=== PATIENT | male | born 2000 | race Caucasian/White ===

== ENCOUNTER 2023-06-02 07:50 | Outpatient (OUT) | payer OTHER, SELFPAY ==
[2023-06-02 09:04] LABS: Hematocrit 40.8 % (42.0-54.0)
[2023-06-03 04:07] LABS: RPR Non Reactive (Non Reactive)
[2023-06-03 06:08] LABS: Estradiol <5.0 pg/mL (7.6-42.6); HBsAg Screen Negative (Negative); HCV Antibody Non Reactive (Non Reactive); HIV Ab/p24 Ag Screen Non Reactive (Non Reactive); Hep B Core Ab, Tot Negative (Negative); Testosterone 142 ng/dL (264-916)
== END 2023-06-02 07:51 | disposition home or self-care (01) ==
LOC: LAB 07:51
PROVIDERS: PCP Family Medicine
DX: E29.1 Testicular hypofunction (principal); Z11.9 Encounter for screening for infectious and parasitic diseases, unspecified; Z11.59 Encounter for screening for other viral diseases
CPT/HCPCS: 36415; 82670; 84403; 85014; 86592; 86706; 86803; 87389

== ENCOUNTER 2024-03-16 07:50 | Emergency (ER) | payer OTHER, SELFPAY ==
[2024-03-16 07:57] VITALS: BP 124/75; PULSE 82; TEMP 36.6; O2SAT 97; BMI 29.7
--- NOTE | 2024-03-16 08:14 | ED_ITS ---
HPI HPI - Back Pain/Injury General Chief Complaint: Back Pain/Injury Stated Complaint: FALL/LOWER EXTREMITY PAIN Time Seen by Provider: 03/16/24 07:56 Source: patient Mode of arrival: walk-in Limitations: no limitations History of Present Illness HPI Narrative: about a week ago the patient slipped on a wet floor in the middle of the night and fell, landing onto a tote in the bathroom. He struck his low back against the tote. Since then he has been experiencing pain to the low back that radiates into the left buttock and - when sitting for longer periods of time - down the left leg. No bowel or bladder problems. No fever or chills. No urinary symptoms or fever. No relief with tylenol or Aleve at home. Related Data Previous Rx's ?Medication ?Instructions ?Recorded methocarbamol 750 mg tablet 750 mg PO Q6H PRN pain #30 tabs 03/16/24 nabumetone 750 mg tablet 750 mg PO BID PRN pain #14 tabs 03/16/24 Allergies Allergy/AdvReac Type Severity Reaction Status Date / Time No Known Drug Allergies Allergy Verified 03/16/24 07:56 Opioid HPI Opioid Management Most Recent Opioid Data: Last Pain Scale 6 03/16/24 08:01 Exam Narrative Exam Narrative: General: Alert, no acute distress, patient resting comfortably Skin: warm, intact, no pallor noted Head: Normocephalic, atraumatic Eye: Normal conjunctiva Respiratory: No acute distress Abdomen: Normal bowel sounds, soft, nontender, no masses detected. No rebound, guarding, or rigidity noted. Back: inspection of the back shows no obvious deformity, no swelling, no ecchymosis, contusion, abrasion, swelling, erythema, fluctuance or induration. Tenderness noted to midline lower lumbar vertebral spine and the left paralumbar soft tissue into the superior left buttock. Straight leg raise on left is negative. Straight leg raise on right is negative. No CVA tenderness noted bilaterally. Musculoskeletal: No deformity noted to bilateral lower extremities. no cyanosis or mottling noted. normal pulses at DP and PT 2+ bilaterally and symmetrically. Normal 5/5 strength at ankles with dorsiflexion and plantar flexion. Patient is able to ambulate. Normal sensation noted to both lower extremities. Neurological: AAOx4, normal sensory and motor observed. L5-S1 reflexes intact symmetrically. DTR 2+ at patellar bilaterally. Psychiatric: Cooperative and interactive. Constitutional Vital Signs, click to edit/add: Last Vital Signs Temp 97.8 F 03/16/24 07:57 Pulse 87 03/16/24 08:53 Resp 16 03/16/24 08:53 BP 122/74 03/16/24 08:53 Pulse Ox 100 03/16/24 08:53 O2 Del Method Room Air 03/16/24 08:53 Course Vital Signs Vital signs: Vital Signs Temperature 97.8 F 03/16/24 07:57 Pulse Rate 82 03/16/24 07:57 Respiratory Rate 16 03/16/24 07:57 Blood Pressure 124/75 03/16/24 07:57 Pulse Oximetry 97 03/16/24 07:57 Oxygen Delivery Method Room Air 03/16/24 07:57 Temperature 97.8 F 03/16/24 07:57 Pulse Rate 87 03/16/24 08:53 Respiratory Rate 16 03/16/24 08:53 Blood Pressure 122/74 03/16/24 08:53 Pulse Oximetry 100 03/16/24 08:53 Oxygen Delivery Method Room Air 03/16/24 08:53 MDM - Back Pain/Injury MDM Narrative Medical decision making narrative: xrays of the lumbar spine obtained. No fracture or subluxation identified. Patient informed of xray interpretation and was discharged home with prescriptions for relafen and robaxin. Recommend PCP follow up. Imaging Data xr lumbar spine: My impression: NAD Radiologist's impression: ITS Impressions Lumbar Spine X-Ray 03/16/24 08:14 IMPRESSION: No acute radiographic abnormality Electronically authenticated by: JERMAN BLUE Date: 03/16/2024 08:55 Discharge Plan Discharge Stand Alone Forms: Portal Instructions Chief Complaint: Back Pain/Injury Clinical Impression: Contusion of lumbar spinal region, Low back pain Patient Disposition: Home, Self-Care Time of Disposition Decision: 08:43 Prescriptions / Home Meds: New nabumetone 750 mg tablet 750 mg PO BID PRN (Reason: pain) Qty: 14 0RF methocarbamol 750 mg tablet 750 mg PO Q6H PRN (Reason: pain) Qty: 30 0RF Print Language: Latvian Instructions: Acute Low Back Pain (ED), Contusion in Adults (ED) Referrals: Martha Patrick MD [Primary Care Provider] - 1 week Discharge Date/Time: 03/16/24 08:54
--- NOTE | 2024-03-16 08:14 | XR_ITS ---
The [address] [address] Patient Name: PRECIOUS HAJI MRN: [id number] date: 2000 Sex: M Assigned Patient Location: ER Current Patient Location: Accession/Order Number: [id number] Exam Date: 03/16/2024 08:20 Report Date: 03/16/2024 08:55 At the request of: PRECIOUS BROWNE Procedure: XR lumbar spine 2-3V EXAMINATION: XR lumbar spine 2-3V HISTORY: LOW BACK INJURY AND PAIN COMPARISON: 06/14/2021 FINDINGS: BONES: 10% anterior wedge compression fracture of the T12 and L1 vertebral bodies, stable. No new fracture or spondylolisthesis. No significant degenerative changes DISC SPACES: Normal. No significant disc height narrowing, subluxation, or endplate abnormality. PARASPINOUS: Negative. No paraspinous abnormality is seen. OTHER: Negative. XR/XR lumbar spine 2-3V IMPRESSION: No acute radiographic abnormality Electronically authenticated by: JERMAN BLUE Date: 03/16/2024 08:55
[2024-03-16 08:53] VITALS: BP 122/74; PULSE 87; O2SAT 100
== END 2024-03-16 08:54 | disposition home or self-care (01) ==
PROVIDERS: Emergency Provider Emergency Medicine; PCP Family Medicine
DX: S30.0XXA Contusion of lower back and pelvis, initial encounter (principal); M54.50 Low back pain, unspecified; W01.0XXA Fall on same level from slipping, tripping and stumbling without subsequent striking against object, initial encounter
CPT/HCPCS: 72100; 99283

== ENCOUNTER 2025-07-21 07:49 | Outpatient (OUT) | payer OTHER, SELFPAY ==
--- NOTE | 2025-07-21 07:56 | CA_ITS ---
Patient Name: PRECIOUS HAJI MR#: [id number] : 2000 Exam Date: 07/21/2025 Ordering Doctor: DR ELGIN DURAN M.D. ECHOCARDIOGRAM REPORT PROCEDURE: CA ECHO DOPPLER COMPLETE INDICATIONS: Left sided chest pain COMPARISON: None. DESCRIPTION: COMPLETE ECHOCARDIOGRAM Real-time transthoracic echocardiography with 2D, M-mode, spectral and color flow Doppler performed. QUALITY: Technical quality was good. LEFT VENTRICLE: Normal chamber size. Normal left ventricular wall thickness. Global left ventricular systolic function is at lower limit of normal without wall motion abnormalities. Estimated left ventricular ejection fraction is 50%. LV EF: DIASTOLIC: Normal diastolic function. ATRIAL SEPTUM: Grossly appears intact LEFT ATRIUM: Normal chamber size. RIGHT ATRIUM: Mild dilatation. RIGHT VENTRICLE: Normal chamber size. Normal right ventricular systolic function. TRICUSPID VALVE: Normal mobility and thickness. No stenosis with mild regurgitation. pulmonary arterial pressure is at upper limit of normal.RVSP 35mmHg. MITRAL VALVE: Normal mobility and thickness. No evidence of mitral valve stenosis. There is no mitral annular calcification. Trivial mitral regurgitation. AORTIC VALVE: Normal trileaflet appearance. No visible sclerosis. Normal leaflet mobility. No evidence of aortic valve stenosis. No aortic regurgitation. AORTIC ROOT: Normal diameter and appearance. PULMONIC VALVE: Normal thickness and mobility. No stenosis. Trivial regurgitation. PERICARDIUM: No evidence of pericardial effusion. IVC: Collapes with inspirations. dilated measuring 2.7cm PLEURA: CONCLUSION: Normal left ventricular size and wall thickness, left ventricular systolic function is at lower limit of normal without wall motion abnormalities, ejection fraction 50% Normal left ventricular diastolic function Normal right ventricular size and systolic function Pulmonary arterial pressure is at upper limit of normal, RVSP 35 mmHg No significant valvular abnormalities Dilated IVC with normal respiratory collapse Mildly dilated right atrium Adult Echocardiography Procedure Report Left Ventricle LVEDD (3.7 - 5.6 cm): 5.12 cm LVESD (2.2 - 4.0 cm): 3.64 cm LVIVS thickness (0.6 - 1.2 cm): 0.98 cm LVPW thickness (0.5 - 1.0 cm): 0.92 cm e': 0.15 m/s E - e': 5.48 LVOT Max Gradient: 2.01 mm[Hg] LVOT Area (cm2): 0.71 m/s Peak Velocity (LVOT): 0.71 m/s Mean Velocity (LVOT): 0.48 m/s LVOT Diameter 2.44 cm Left Ventricular Ejection Fraction: 56.22 % Left Atrium LA Volume Index (2D A2C): 28.06 ml/m2 Left Atrium Systolic Dimension: 3.55 cm Mitral Valve MV E to A Ratio: 1.84 Mitral Valve A-Wave Peak Velocity: 0.46 m/s Mitral Valve E-Wave Peak Velocity: 0.84 m/s Right Ventricle RV Internal Diastolic Dimension: 3.35 cm Aorta AO Root Diam: 3.75 cm Ascending Ao Diam: 2.85 cm Aortic Valve AoV Area (Peak Farncisco): 3.36 cm2, 3.36 cm2 AoV Area (VTI): 3.23 cm2, 3.23 cm2 Peak Velocity(Antegrade Flow): 0.98 m/s Peak Gradient(Antegrade Flow): 3.86 mm[Hg] Mean Velocity(Antegrade Flow): 0.69 m/s Mean Gradient(Antegrade Flow): 2.16 mm[Hg] Velocity Time Integral: 21.67 cm Tricuspid Valve Peak Velocity (Regurgitant Flow): 2.62 m/s, 2.12 m/s, 2.16 m/s Pulmonic Valve Mean Gradient: 1.14 mm[Hg], 1.08 mm[Hg] Mean Velocity: 0.50 m/s, 0.48 m/s Peak Velocity: 0.70 m/s Peak Gradient: 1.85 mm[Hg], 2.05 mm[Hg] Right Atrium Right Atrium Systolic Pressure: 64.21 ml, 64.21 ml Dictated by: Mitul Marrero MD on 07/22/2025 at 17:37 Approved by: Mitul Marrero MD on 07/22/2025 at 17:46
== END 2025-07-21 07:50 | disposition home or self-care (01) ==
LOC: CARD 07:49
PROVIDERS: PCP Family Medicine; Visit Provider Family Medicine
DX: R07.9 Chest pain, unspecified (principal)
CPT/HCPCS: 93306

== ENCOUNTER 2025-10-10 08:20 | Emergency (ER) | payer OTHER, SELFPAY ==
[2025-10-10 08:31] VITALS: BP 135/82; PULSE 74; TEMP 36.7; O2SAT 99; BMI 28.6
[2025-10-10] MEDS: FLUORESCEIN SODIUM 1 MG STRIP OP (09:25)
[2025-10-10] MEDS: TETRACAINE HCL 0.5% OP SOL 80 DROP/4 ML BOTTLE OP (09:25)
--- NOTE | 2025-10-10 09:34 | ED.EYEPROB1 ---
HPI - Eye Problem General Chief complaint: Eye Problems Stated complaint: foreign body - eye Time Seen by Provider: 10/10/25 08:45 Source: patient Mode of arrival: walk-in Limitations: no limitations History of Present Illness HPI Narrative: The patient is coming to the ER after he was working with saw machine yesterday and apparently had some sawdust entered his left eye as he started having irritation of the left eye while he is working, the patient mentioned that he thinks he have some sawdust in his eye and he did flush it multiple times yesterday he thinks that he got most of it out Patient does not wear any contact lenses he wore glasses for distance vision He denies any other concerns Related Data Previous Rx's ?Medication ?Instructions ?Recorded methocarbamol 750 mg tablet 750 mg PO Q6H PRN pain #30 tabs 03/16/24 nabumetone 750 mg tablet 750 mg PO BID PRN pain #14 tabs 03/16/24 erythromycin 5 mg/gram (0.5 %) eye 0.5 inch ophthalmic (eye) Q4H 5 10/10/25 ointment days #3.5 grams Allergies Allergy/AdvReac Type Severity Reaction Status Date / Time No Known Drug Allergies Allergy Verified 10/10/25 08:31 Review of Systems ROS Status of ROS 10 or more systems reviewed and unremarkable except as noted in history and below PFSH PFSH Social History Little interest or pleasure in doing things: not at all Feeling down, depressed, or hopeless: not at all Exam Narrative Exam Narrative: Nurses notes and vital signs reviewed and patient is not hypoxic. General: Well-appearing and in no apparent distress. Eye examination: Right eye examination was benign left eye examination showed conjunctival erythema there is no obvious foreign body seen, no corneal abrasion and the patient have no hyphema or hypopyon. The fluorescein material was almost 1 mm on the anterior of the left upper lid mostly left upper corner Neurological: A&O x4. No cranial nerve dysfunction observed. No truncal ataxia. Moves all extremities. Sensation intact. Psychiatric: Cooperative and interactive. Normal mood and affect. Constitutional Vital Signs, click to edit/add: Last Vital Signs Temp 98.1 F 10/10/25 08:31 Pulse 74 10/10/25 08:31 Resp 18 10/10/25 08:31 BP 135/82 10/10/25 08:31 Pulse Ox 99 10/10/25 08:31 O2 Del Method Room Air 10/10/25 08:31 Course Vital Signs Vital signs: Vital Signs Temperature 98.1 F 10/10/25 08:31 Pulse Rate 74 10/10/25 08:31 Respiratory Rate 18 10/10/25 08:31 Blood Pressure 135/82 10/10/25 08:31 Pulse Oximetry 99 10/10/25 08:31 Oxygen Delivery Method Room Air 10/10/25 08:31 Temperature 98.1 F 10/10/25 08:31 Pulse Rate 74 10/10/25 08:31 Respiratory Rate 18 10/10/25 08:31 Blood Pressure 135/82 10/10/25 08:31 Pulse Oximetry 99 10/10/25 08:31 Oxygen Delivery Method Room Air 10/10/25 08:31 MDM - Eye Problem MDM Narrative Medical decision making narrative: The patient initially had bedside evaluation showing no foreign body after that he had tetracaine applied And then fluorescein dye and there is a possibility of a small 1 mm abrasion to the anterior of the left upper eyelid. But I did flush the eye adequately from the dye and to make sure there is no foreign body as well. Patient was started on erythromycin for conjunctival abrasion And then the patient was referred to ophthalmology as outpatient to be evaluated within next 48 hours Patient referred to Dr[address] Rico in ophthalmology service The patient also was instructed about wearing goggles when working with the electric saw Patient to come back to the ER in case of any blurry vision or any other concerns Discharge Plan Discharge Chief Complaint: Eye Problems Clinical Impression: Abrasion of conjunctiva Patient Disposition: Home, Self-Care Time of Disposition Decision: 09:35 Condition: Good Prescriptions / Home Meds: New erythromycin 5 mg/gram (0.5 %) ointment 0.5 inch ophthalmic (eye) Q4H 5 Days Qty: 3.5 0RF Rx Instructions: left eye No Action nabumetone 750 mg tablet 750 mg PO BID PRN (Reason: pain) Qty: 14 0RF methocarbamol 750 mg tablet 750 mg PO Q6H PRN (Reason: pain) Qty: 30 0RF Print Language: Honduran Instructions: Corneal Abrasion (DC), Eye Foreign Body (ED) Referrals: Suhail Rico MD [Physician, Opthalmology] - As soon as possible Referral Note: Please call for an appointment within the next 2 days Martha Patrick MD [Primary Care Provider, Family Practice] - 1 week Discharge Date/Time: 10/10/25 09:47
[2025-10-10] MEDS: ERYTHROMYCIN OP OINT 0.5% 1 GM TUBE OP (09:45)
== END 2025-10-10 09:47 | disposition home or self-care (01) ==
PROVIDERS: Emergency Provider Emergency Medicine; PCP Family Medicine
DX: S05.02XA Injury of conjunctiva and corneal abrasion without foreign body, left eye, initial encounter (principal); W44.8XXA Other foreign body entering into or through a natural orifice, initial encounter
CPT/HCPCS: 99284

== ENCOUNTER 2025-11-22 07:27 | Emergency (ER) | payer OTHER, SELFPAY ==
--- OUTSIDE RECORDS SUMMARY | 2025-02-25 04:00 | XMS_ITS ---
Author Organization [facility] es Address [address] [place] [address] Care Team Providers Care Director Technical Name Role Phone Raimundo Sullivan Primary Care Provider Josi Maldonado Unavailable [phone] REASON FOR VISIT [facility] Encounters Encounter Location Date Provider Diagnosis [facility] [address] [place] [address] 02/25/2025 Raimundo Sullivan Plan Of Treatment Next Appt Details Provider Name:Raimundo Sullivan , 12/02/2025 09:00:00 AM, [address] [place], [address], Progress Notes * PRECIOUS HAJIDOB:2000 (25 yo M)Acc No.[id number]:02/25/2025 F/U - Patient Patient: PRECIOUS TRUONG :?Raimundo Sullivan LPC DOB:2000???Age:24 Y ???Sex:MaleDate:02/25/2025Phone:[phone]:[address] [place], [place] [id number] Subjective: * Chief Complaints: * B h fu Care Plan Details* * Electronic signature of Raimundo Sullivan LPC on 11/22/2025 at 08:00 AM ESTSign off status: Pending * Provider: Gillian Sullivan LPC Date: 0 02/25/2025 Generated for Printing/Faxing/eTransmitting on:?11/22/2025 08:00 AM EST
--- OUTSIDE RECORDS SUMMARY | 2025-09-09 10:30 | XMS_ITS ---
Author Organization [facility] es Address [address] [place] [address] Care Team Providers Care Outreach Director Name Role Phone Raimundo Sullivan Primary Care Provider [phone] Josi Malodnado Unavailable [phone] REASON FOR VISIT [facility] Encounters Encounter Location Date Provider Diagnosis [facility] [address] [place] [address] 09/09/2025 Raimundo Sullivan Plan Of Treatment Next Appt Details Provider Name:Raimundo Sullivan , 12/02/2025 09:00:00 AM, [address] [place], [address], Progress Notes * PRECIOUS HAJIDOB:2000 (25 yo M)Acc No.[id number]:09/09/2025 F/U - Patient Patient: PRECIOUS TRUONG :?Raimundo Sullivan LPC DOB:2000???Age:25 Y ???Sex:MaleDate:09/09/2025Phone:[phone]:[address] [place], [place] [id number] Subjective: * Chief Complaints: * B h fu Billing Information: * Procedure Codes: Care Plan Details* * Electronic signature of Raimundo Sullivan LPC on 11/22/2025 at 08:00 AM ESTSign off status: Pending * Provider: Gillian Sullivan LPC Date: 1 Generated for Printing/Faxing/eTransmitting on:?11/22/2025 08:00 AM EST
--- OUTSIDE RECORDS SUMMARY | 2025-11-11 11:00 | XMS_ITS ---
Author Organization [facility] es Address [address] [place] [address] Care Team Providers Care Developmental Electronics Assembler Name Role Phone Raimundo Sullivan Primary Care Provider [phone] Josi Maldonado Unavailable [phone] REASON FOR VISIT fu Encounters Encounter Location Date Provider Diagnosis [facility] [address] [place] [address] 11/11/2025 Raimundo Sullivan Mood disorder F39 Assessments Encounter Date Diagnosis (ICD Code) Assessment Notes Treatment Notes Treatment Clinical Notes Section Notes 11/11/2025 Mood disorder (ICD-10 - F39) Plan Of Treatment Next Appt Details Provider Name:Raimundo Sullivan , 12/02/2025 09:00:00 AM, [address] [place], [address], Progress Notes * PRECIOUS HAJIDOB:2000 (25 yo M)Acc No.[id number]:11/11/2025 F/U - Patient Patient: PRECIOUS TRUONG :?Raimundo Sullivan LPC DOB:2000???Age:25 Y ???Sex:MaleDate:11/11/2025Phone:[phone]:[address] [place] [id number] Subjective: * Chief Complaints: * 1 . fu. Assessment: * Assessment: 1.?Mood disorder - F39 (Primary)??? Plan: * Procedure Codes: 9 0834 PSYTX EST PT&/FAMILY 45 MIN (38-52) Billing Information: * Procedure Codes: 84857 PSYTX EST PT&/FAMILY 45 MIN (38-52). Care Plan Details* Problem B H F/U Progress Note PresentAt Appointment:?Patient Session Type:?Face to Face Start Time/End Time:?4:02-4:46 44 mins Mental Status ExaminationCurrent Mental Status Normal:?Oriented x 4;Mood: Euthymic;Affect: Congruent;Insight/Judgment: Good;Thought: Unremarkable;Speech: Normal InterventionRisk Assessment:?PT denies all areas of risk. No contrary indications present. Therapy Modality:?behavior modification Interventions:?assess safety risks;build rapport;encourage expression of needs;healthy boundaries;reflectivelistening;relaxation/deep breathingComments : ADVANCED PRACTICE NURSE met with pt for scheduled follow up appointment. ADVANCED PRACTICE NURSE explored pts life stressors with pt at length. ADVANCED PRACTICE NURSE explored with pt how work was going. ADVANCED PRACTICE NURSE and pt explored how things at home was going. ADVANCED PRACTICE NURSE and pt explored how his wants me to talk about my drinking . ADVANCED PRACTICE NURSE used AK with pt to explore his increased drinking and what might have been factors in his increased drinking. ADVANCED PRACTICE NURSE and pt explored his stress with his sister and how he was handling the stress with the holidays coming up. Response to Intervention:?Pt met with ADVANCED PRACTICE NURSE for scheduled follow up appointment. Pt explored with ADVANCED PRACTICE NURSE life stressors at length. Pt reports that work was going ok . Pt and ADVANCED PRACTICE NURSE explored how things at home were good . Pt and ADVANCED PRACTICE NURSE explored how his wants me to talk about my drinking . Pt and ADVANCED PRACTICE NURSE explored his drinking including what benefits he gets from it. Pt and ADVANCED PRACTICE NURSE explored goals to reducehis drinking during the holidays. Pt and ADVANCED PRACTICE NURSE explored how he was handling the stress with his sister since the holidays were coming up. Progress:?moderate PlanRecommended Frequency of Treatment:?monthly Confirmatory sign off:Sean Hennessy 11/14/2025 at 09:23 AM EST* Electronically co-signed by RUPAL Treadwell, [id number] on 11/14/2025 at 09:23 AM ESTSign off status: Completed true * Provider: Gillian Sullivan LPC Date: 1 01/12/2025 Generated for Printing/Faxing/eTransmitting on:?11/22/2025 08:00 AM EST
[2025-11-22 07:46] VITALS: BP 125/79; PULSE 69; TEMP 36.8; O2SAT 98; BMI 28.0
--- NOTE | 2025-11-22 07:56 | ED.GENADUL1 ---
HPI HPI - General Adult General Chief complaint: Skin/Abscess/Foreign Body Stated complaint: rash - neck and arms Time Seen by Provider: 11/22/25 07:42 Source: patient Mode of arrival: walk-in Limitations: no limitations History of Present Illness HPI narrative: 25-year-old male presents for rash which she has had for nearly 2 weeks. It is around his neck and on both forearms. It is not anywhere else on his body. He has no history of any use of new products. He has not worn any new jewelry. He states he does not wear jewelry at all. No new medication use. He does not recall coming into contact with any chemicals. The rash is pruritic. Related Data Previous Rx's ?Medication ?Instructions ?Recorded methocarbamol 750 mg tablet 750 mg PO Q6H PRN pain #30 tabs 03/16/24 nabumetone 750 mg tablet 750 mg PO BID PRN pain #14 tabs 03/16/24 erythromycin 5 mg/gram (0.5 %) eye 0.5 inch ophthalmic (eye) Q4H 5 10/10/25 ointment days #3.5 grams prednisone 10 mg tablet See Rx Instructions .Route 11/22/25 .COMPLEX #30 tabs triamcinolone acetonide 0.5 % 1 applic topical BID #15 grams 11/22/25 topical cream Allergies Allergy/AdvReac Type Severity Reaction Status Date / Time No Known Drug Allergies Allergy Verified 10/10/25 08:31 Opioid HPI Opioid Management Most Recent Opioid Data: Last Pain Scale 1 10/10/25, 08:38 Review of Systems ROS Narrative A ten point review of systems is negative except as noted above. PFSH PFSH Social History Little interest or pleasure in doing things: not at all Feeling down, depressed, or hopeless: not at all Exam Narrative Exam Narrative: Nurses note and vital signs reviewed General:The patient appears well and in no apparent distress.Patient is resting comfortably on cart. Skin:Warm, dry, no pallor noted.There is erythematous rash present on both forearms on the flexor side and also around his neck. The rash is symmetric. The rash goes approximately 270 degrees around his neck, not on the posterior aspect. There is no open area or drainage. Head:Normocephalic, atraumatic Eye: Normal conjunctiva, no drainage Ears, Nose, Mouth, and Throat: oral mucosa is moist. Nares patent. Cardiovascular:Regular Rate and Rhythm Respiratory:Patient is in no distress, no accessory muscle use, lungs are clear to auscultation, no wheezing, rales or rhonchi Back:non-tender GI: Soft and nontender Musculoskeletal: No joint swelling Neurological:A&O, normal speech Psychiatric:Cooperative Constitutional Vital Signs, click to edit/add: Last Vital Signs Temp 98.2 F 11/22/25 07:46 Pulse 69 11/22/25 07:46 Resp 18 11/22/25 07:46 BP 125/79 11/22/25 07:46 Pulse Ox 98 11/22/25 07:46 O2 Del Method Room Air 11/22/25 07:46 Course Vital Signs Vital signs: Vital Signs Temperature 98.2 F 11/22/25 07:46 Pulse Rate 69 11/22/25 07:46 Respiratory Rate 18 11/22/25 07:46 Blood Pressure 125/79 11/22/25 07:46 Pulse Oximetry 98 11/22/25 07:46 Oxygen Delivery Method Room Air 11/22/25 07:46 Temperature 98.2 F 11/22/25 07:46 Pulse Rate 69 11/22/25 07:46 Respiratory Rate 18 11/22/25 07:46 Blood Pressure 125/79 11/22/25 07:46 Pulse Oximetry 98 11/22/25 07:46 Oxygen Delivery Method Room Air 11/22/25 07:46 Medical Decision Making MDM Narrative Medical decision making narrative: My clinical impression is that he has a contact dermatitis. He is prescribed prednisone and Kenalog cream. Treatment diagnosis and follow-up were discussed with the patient. Differential Diagnosis Differential Diagnosis: Contact dermatitis Discharge Plan Discharge Chief Complaint: Skin/Abscess/Foreign Body Clinical Impression: Contact dermatitis Patient Disposition: Home, Self-Care Time of Disposition Decision: 07:54 Condition: Good Mode of Transportation: Private Vehicle Prescriptions / Home Meds: New prednisone 10 mg tablet See Rx Instructions .ROUTE .COMPLEX Qty: 30 0RF Rx Instructions: 4 by mouth daily for three days then 3 by mouth daily for three days then 2 by mouth daily for three days then 1 by mouth daily for three days triamcinolone acetonide 0.5 % cream 1 applic topical BID Qty: 15 0RF No Action nabumetone 750 mg tablet 750 mg PO BID PRN (Reason: pain) Qty: 14 0RF methocarbamol 750 mg tablet 750 mg PO Q6H PRN (Reason: pain) Qty: 30 0RF erythromycin 5 mg/gram (0.5 %) ointment 0.5 inch ophthalmic (eye) Q4H 5 Days Qty: 3.5 0RF Rx Instructions: left eye Print Language: Azeri Instructions: Contact Dermatitis (ED) Referrals: Martha Patrick MD [Primary Care Provider, Family Practice] - 1 week
--- OUTSIDE RECORDS SUMMARY | 2025-11-22 08:00 | XMS_ITS | Clinical Summary ---
Author Organization [facility] Address [address] [place] [address] Care Team Providers Care Chief Privacy Officer Name Role Phone Unavailable Primary Care Provider Unavailabl e Social History Tobacco UseTypesPacks/DayYears UsedDateSmoking Tobacco: Never AssessedSex and Gender InformationValueDate RecordedSex Assigned at VgxbdPfxg29/20/2025 8:52 AM EDTLegal BizNjko5005/22/2022 10:57 PM EDTGender BlayqphoFmuh26/20/2025 8:52 AM EDT Sexual OrientationHeterosexual or Jprpjmoj62/20/2025 8:52 AM EDT Plan of Treatment Health MaintenanceDue DateLast DoneCommentsDepression Udwvcihpk81/05/2011 Varicella Vaccines (1 of 2 - 13+ 2-dose series)02/27/2012HPV Vaccines (1 - Male 3-dose series)2014dult Ltootgu4602/26/2021OVID-19 Vaccine (2024- season)2025Influenza Vaccine (#1)2025Zoster Vaccines (1 of 2) 2049HIB VaccinesAged OutNo longer eligible based on patient's age to complete this topicIPV VaccinesAged OutNo longer eligible based on patient's age to complete this topicMeningococcal B VaccineAged OutNo longer eligible based on patient's age to complete this topicMeningococcal VaccineAged OutNo longer eligible based on patient's age to complete this topicPneumococcal Vaccine: Pediatrics (0 to 5 Years) and At-Risk Patients (6 to 64 Years)Aged OutNo longer eligible based on patient's age to complete this topicRotavirus VaccinesAged Out No longer eligible based on patient's age to complete this topic Insurance
--- OUTSIDE RECORDS SUMMARY | 2025-11-22 08:00 | XMS_ITS | Encounter Summary ---
Author Organization [facility] Address [address] [facility] [address] [facility], [address] [place] [address] Care Team Providers Care Usability Strategist Name Role Phone Martha Patrick MD Primary Care Provider [phone] Encounter Details DateTypeDepartmentCare Team (Latest Contact Info)Gqpkorouisn09/15/2025Results Follow-Up [facility] Part of [address] [place] [address] Diana Garcia, DOOR TO DOOR SELLING DISTRIBUTOR - MORTGAGE LOAN UNDERWRITER [address] [place] [address] [address] [place] [address] Social History Tobacco UseTypesPacks/DayYears UsedDateSmoking Tobacco: FormerCigarettesPassive Smoke Exposure: CurrentSmokeless Tobacco: FormerChewQuit: 03/28/2025 Comments:Quit 3 years ago, s moked for about 3 years Alcohol UseStandard Drinks/WeekCommentsYes0 (1 standard drink = 0.6 oz pure alcohol)beer every daySex and Gender InformationValueDate RecordedSex Assigned at BirthNot on fileLegal AupLtpu8301/06/2013 1:12 AM ESTGender IdentityNot on file Sexual OrientationNot on filedocumented as of this encounter Plan of Treatment DateTypeDepartmentCare Team (Latest Contact Info)Ujffdtkzoyg55/27/2026 10:00 AM ESTOffice Visit [facility] UR[facility]Y [address] [place] [address] Chintan Campa, PA-C [address] [place] [address] [address] [place] [address] 3m f/udocumented as of this encounter Visit Diagnoses Not on filedocumented in this encounter Care Teams Team MemberRelationshipSpecialtyStart DateEnd Date Martha Patrick MD [address] [place] [address] PCP - GeneralFamily Medicine01/19/24documented as of this encounter
--- OUTSIDE RECORDS SUMMARY | 2025-11-22 08:00 | XMS_ITS | Patient Health Record ---
Author Organization [facility] Address [address] [place] [address] Care Team Providers Care Thermodynamics Teacher Name Role Phone Laurie Raimundo Primary Care Provider [phone] Josi Maldonado Unavailable [phone] Reason For Referral No Information Problems Problem Type SNOMED Code ICD Code Onset Dates Problem Status W/U Status Risk Notes Problem Mood disorder (15987952) Mood disorder (F 39) Activeconfirmed Encounters Encounter Location Date Provider Diagnosis [facility] [address] [place] [address] 12/28/2024 [facility] [place] [address]/15/2025 [facility] [place] [address] [place], [place] [id number] [place] [address] nthony SchalkMood disorder [address] [place] [address]/nthony SchalkMood disorder [address] [place] [address]/ntny SchalkMood disorder [address] [place] [address]/03/2025 [facility] CenterkevinkMood disorder [address] [place] [address]/04/2025Anthony SchalkMood disorder [address] [facility] [place] [address]/5Anthony SchalkMood disorder [address] [facility] [place] [address]/5Anthony SchalkMood disorder [address] [facility] [place] [address]/10/2025 Raimundo SchalkMood disorder [address] [facility] [place] [address]/5Anthony SchalkMood disorder [address] [facility] [place] [address]/5Anthony SchalkMood disorder F3 Assessments Encounter Date Diagnosis (ICD Code) Assessment Notes Treatment Notes Treatment Clinical Notes Section Notes 12/29/2024 Mood disorder (ICD-10 - F39) 01/24/2025Mood disorder (ICD-10 - F39)03/09/2025Mood disorder (ICD-10 - F39) 03/28/2025Mood disorder (ICD-10 - F39)04/27/2025Mood disorder (ICD-10 - F39) 06/01/2025Mood disorder (ICD-10 - F39)07/01/2025Mood disorder (ICD-10 - F39) 08/05/2025Mood disorder (ICD-10 - F39)10/11/2025Mood disorder (ICD-10 - F39) 11/11/2025Mood disorder (ICD-10 - F39) Plan Of Treatment Next Appt Details Provider Name:Raimundo Sullivan , 12/02/2025 09:00:00 AM, [address] [place], [address], Insurance Providers Payer Name Payer Address Payer Phone Subscriber Number Group Number Insured Name Patient Relationship to Insured Coverage Start Date Coverage End Date [employer] [id number] [place] [id number] PRECIOUS HAJI Self - patient is the insured 9
--- OUTSIDE RECORDS SUMMARY | 2025-11-22 08:00 | XMS_ITS | Clinical Summary ---
Author Organization [facility] [place] [address] Care Team Providers Care Riveting Machine Operator Tape Control Name Role Phone Martha Patrick MD Primary Care Provider [phone] Aung Cabrera MD Unavailable [phone] Aurea Blanchard MD Unavailable [phone] Shanthi Kirkland [facility] Unavailable [phone] Allergies No known active allergies Medications No known medications Active Problems ProblemNoted DateDiagnosed DateSyncope and fbmzohvl29/22/2015Palpitations 09/14/2015Dizziness and ulhlgbfeo88/22/2015 Family History Medical HistoryRelationCommentsNo known problemsBrotherNo known problemsFather ArrhythmiaMaternal Grandfathera fibNo known problemsMaternal GrandmotherNo known problemsMotherHeart AttackPaternal GrandfatherCancerPaternal GrandmotherNo known problemsSisterRelationStatusCommentsBrotherAliveFatherAliveMaternal Grandfather AliveMaternal GrandmotherAliveMotherAlivePaternal GrandfatherDeceasedPaternal GrandmotherAliveSisterAlive Social History Tobacco UseTypesPacks/DayYears UsedDateSmoking Tobacco: NeverAlcohol UseStandard Drinks/WeekCommentsNot Asked0 (1 standard drink = 0.6 oz pure alcohol)Sex and Gender InformationValueDate RecordedSex Assigned at BirthNot on fileLegal Sex Male09/05/2015 12:13 PM EDTGender IdentityNot on fileSexual OrientationNot on file Last Filed Vital Signs Vital SignReadingTime TakenCommentsBlood Jomvwfad551/6709/14/2015 11:06 AM EDT Dnssj579709/14/2015 11:06 AM EDTTemperature--Respiratory Fqkd6306 11:06 AM EDTOxygen Saturation--Inhaled Oxygen Concentration--Ihhydb22.1 kg (187 lb 9.8 oz)09/14/2015 11:06 AM UMKKboivx648 cm (6' 4.77 )09/14/2015 11:06 AM EDTBody Mass Index22.381 11:06 AM EDT Plan of Treatment Health MaintenanceDue DateLast DoneCommentsMMR (1 of 1 - Standard series) 02/27/2000Tetanus Diphtheria and Pertussis Vaccines (1 - Tdap)2006 Varicella (1 of 2 - 13+ 2-dose series)02/27/2012HPV (1 - Male 3-dose series) 2014MenB (1 of 2 - MenB 2-Dose Series Bexsero)2015Hepatitis A (1 of 2 - Risk 2-dose series)2018Hepatitis B (1 of 3 - 19+ 3-dose series) 2018COVID-19 ()07/25/2025FLU (#1)07/25/2025HIBAged OutNo longer eligible based on patient's age to complete this topicMenACWYAged OutNo longer eligible based on patient's age to complete this topicNirsevimabAged Out No longer eligible based on patient's age to complete this topicPneumococcalAged OutNo longer eligible based on patient's age to complete this topicPolioAged Out No longer eligible based on patient's age to complete this topicRotavirusAged OutNo longer eligible based on patient's age to complete this topic Insurance * Guarantor: Viral Haji TypeRelation to PatientDate of BirthPhone Billing AddressPersonal/RhbyioHqys[address] [address] * Guarantor: Swetha HAJI TypeRelation to PatientDate of BirthPhoneBilling AddressPersonal/XjebcsShgcme82[birth year][id number] [place] [address] * Guarantor: Swetha HAJI TypeRelation to PatientDate of BirthPhoneBilling AddressPersonal/PxnzrdQahrjz51/[birth year][id number] [place] [address] Care Teams Team MemberRelationshipSpecialtyStart DateEnd Date Martha Patrick MD [address] [place] [address] PCP - GeneralFamily Xcpchwqn46/22/15 Aung Cabrera MD [address] [place] [address] Urology04/16/23 Aurea Blanchard [place] [address] Attending ProviderMedical Clinical Genetics07/01/23 Shanthi Kirkland [facility] [address] [place], [place] [address] Genetic AcqdgzmwpQraefegj03/28/23
--- OUTSIDE RECORDS SUMMARY | 2025-11-22 08:00 | XMS_ITS | Clinical Summary ---
Author Organization [facility] Address [address] [place] [address] Care Team Providers Care Slab Grinder Name Role Phone Martha Patrick MD Primary Care Provider [phone] Allergies No known active allergies Medications MedicationSigDispense QuantityRefillsLast FilledStart DateEnd DateStatus predniSONE (Deltasone) 20 MG tablet Take 20 mg by mouth in the morning and 20 mg before bedtime.05/14/2024ctive naproxen sodium (Aleve) 220 MG tablet every 12 (twelve) hoursActive Testosterone 20.25 MG/ACT (1.62%) gel Place 1,250 mg on the skin03/31/2024ctive Family History Medical HistoryRelationNameCommentsHypertensionFatherRelationNameStatusComments FatherAliveMotherAlive Social History Tobacco UseTypesPacks/DayYears UsedDateSmoking Tobacco: FormerCigarettes Smokeless Tobacco: CurrentChew Tobacco Cessation:Ready to Q uit: Not Asked Alcohol UseStandard Drinks/WeekCommentsYes0 (1 standard drink = 0.6 oz pure alcohol)Sex and Gender InformationValueDate RecordedSex Assigned at BirthNot on fileLegal PpaDrhh1002/05/2023 10:12 PM EDTGender IdentityNot on fileSexual OrientationNot on file Last Filed Vital Signs Vital SignReadingTime TakenCommentsBlood Trtepopy525/80002/09/2020 12:00 PM EDT Pulse--Temperature--Respiratory Rate--Oxygen Saturation--Inhaled Oxygen Concentration--Pjuimm415 kg (225 lb)02/09/2020 12:00 PM UAFAvxpay574.2 cm (6' 8 )02/09/2020 12:00 PM EDTBody Mass Index24.72002/09/2020 12:00 PM EDT Plan of Treatment Not on file Insurance Care Teams Team MemberRelationshipSpecialtyStart DateEnd Date Martha Patrick MD PCP - GeneralFamily Medicine05/17/24
--- OUTSIDE RECORDS SUMMARY | 2025-11-22 08:00 | XMS_ITS | Clinical Summary ---
Author Organization [facility] Address [address] [place] [address] Phone Care Team Providers Care Jet Dyeing Machine Tender Name Role Phone Martha Patrick MD Primary Care Provider Social History Tobacco UseTypesPacks/DayYears UsedDateSmoking Tobacco: Never AssessedSex and Gender InformationValueDate RecordedSex Assigned at BirthNot on fileLegal Sex Male10/19/2022 11:47 AM ESTGender IdentityNot on fileSexual OrientationNot on file Plan of Treatment Not on file Care Teams Team MemberRelationshipSpecialtyStart DateEnd Date Martha Patrick MD [address] [place] [address] [address] [place] [id number] PCP - [facility]07/19/11
--- OUTSIDE RECORDS SUMMARY | 2025-11-22 08:00 | XMS_ITS | Clinical Summary ---
Author Organization [facility] Address [address] [facility] [address], [address] [place] [address] Care Team Providers Care Stock Dealer Name Role Phone Martha Patrick MD Primary Care Provider [phone] Allergies Active AllergyReactionsCriticalityNoted WitwQrexhjkgUzhgqjwqsusfMvcri93/21/2024 Medications MedicationSigDispense QuantityRefillsLast FilledStart DateEnd DateStatus naproxen sodium (ANAPROX) 220 MG tablet Take by mouth as neededActive Testosterone (ANDROGEL) 20.25 MG/ACT (1.62%) GEL gel Indications:Low testosteronePlace 2 actuation onto the skin daily for 90 days. Max Daily Amount: 2,500 mg 4 each 5012/13/2025ctive Active Problems ProblemNoted DateDiagnosed DateKlinefelter syndrome karyotype 47, xxy01/19/2024 Low dchkkdigxtnv64/26/2024 Encounters DateTypeDepartmentCare ExdrJbaikzsdxoe09/22/2025 10:15 AM EDTOffice Visit [facility] UROLOGY Part [address] [place] [address] Chintan Campa PA-C Low testosterone (Primary Dx); Klinefelter syndrome karyotype 47, xxy1Results Follow-Up [facility] [address] [place] [address] Diana Garcia, SOYBEAN GROWER - PARKING LINE PAINTER 09/06/2025 8:07 AM EDT - 09/06/2025 11:59 PM EDTHospital Encounter [facility] [address] [place], [place] [phone] Low testosterone Discharge Disposition: Home or Self Carefrom Last 3 Months Family History Medical HistoryRelationNameCommentsHypertensionFatherRelationNameStatusComments FatherAliveMotherAlive Social History Tobacco UseTypesPacks/DayYears UsedDateSmoking Tobacco: FormerCigarettesPassive Smoke Exposure: CurrentSmokeless Tobacco: FormerChewQuit: 03/28/2025 Tobacco Cessation:Counseling Given: Not Answered Comments:Quit 3 years ago, smoked for about 3 years Alcohol UseStandard Drinks/WeekCommentsYes0 (1 standard drink = 0.6 oz pure alcohol)beer every daySex and Gender InformationValueDate RecordedSex Assigned at BirthNot on fileLegal RtmChgu9801/06/2013 1:12 AM ESTGender IdentityNot on file Sexual OrientationNot on file Last Filed Vital Signs Vital SignReadingTime TakenCommentsBlood Xbvyfwvm503/7610 10:12 AM EDT Svylw809309/14/2025 10:12 AM WRMOattbokdesh75.8 ??C (98.2 ??F)09/14/2025 10:12 AM EDTRespiratory Rate--Oxygen Saturation--Inhaled Oxygen Concentration--Weight 122.9 kg (271 lb)09/14/2025 10:12 AM CTWInqfdc041.2 cm (6' 8 )06/13/2025 9:35 AM EDTBody Mass Index29.7707 9:35 AM EDT Plan of Treatment DateTypeDepartmentCare Team (Latest Contact Info)Aomdbjatigv77/27/2026 10:00 AM ESTOffice Visit [facility] UR[facility] Part of [facility] [address] [place] [address] Chintan Campa PAJenniferC [address] [place] [address] [address] [place] [address] 3m f/uHealth MaintenanceDue DateLast DoneCommentsDepression Wtdvvu6702/26/2011 Varicella vaccine (1 of 2 - 13+ 2-dose series)02/27/2012HIV qaznle1202/26/2014HPV vaccine (1 - Male 3-dose series)2014Hepatitis C sfkupj6102/26/2017 DTaP/Tdap/Td vaccine (1 - Tdap)2018Hepatitis B vaccine (1 of 3 - 19+ 3- dose series)2018Flu vaccine (#1)5COVID-19 Vaccine (3 - season)507/04/2022, 05/08/2022Meningococcal (ACWY) vaccineCompleted 05/09/2016Hepatitis A vaccineAged OutNo longer eligible based on patient's age to complete this topicHib vaccineAged OutNo longer eligible based on patient's age to complete this topicMeningococcal B vaccineAged OutNo longer eligible based on patient's age to complete this topicPneumococcal 0-49 years VaccineAged OutNo longer eligible based on patient's age to complete this topicPolio vaccine Aged OutNo longer eligible based on patient's age to complete this topic Procedures Procedure NamePriorityDate/TimeAssociated DiagnosisCommentsTESTOSTERONERoutine 09/06/2025 8:17 AM EDT Low testosterone HEMOGLOBIN AND KLUEDEHAAGYiiwkbm34/14/2025 8:17 AM EDT Low testosterone COMPREHENSIVE METABOLIC LTSNMPwmhkyn92/14/2025 8:17 AM EDT Low testosterone from Last 3 Months Results * Hemoglobin and Hematocrit (09/06/2025 8:17 AM EDT)ComponentValueRef RangeTest MethodAnalysis TimePerformed AtPathologist AmqjozjesKiuskondfc28.513.0 - 17.0 g/dL09/06/2025 8:17 AM [facility] XPGMsajeixaas77.340.7 - 50.3 %09/06/2025 8:17 AM [facility] LABSpecimen (Source) Anatomical Location / LateralityCollection Method / VolumeCollection Time Received TimeBloodBLOOD SPECIMEN / Rrisxae8309/06/2025 8:17 AM EDT1 8:18 AM EDT Narrative Authorizing ProviderResult TypeResult StatusKyfredrick HOOVERCHEMATOLOGY ORDERABLESFinal ResultPerforming OrganizationAddressCity/State/ZIP CodePhone Number [facility] [address] [place] [address], [facility] [phone] * Testosterone (09/06/2025 8:17 AM EDT)ComponentValueRef RangeTest Method Analysis TimePerformed AtPathologist GqjtgmvloEirhhthbaapk527730 - 836 ng/dL 09/06/2025 8:17 AM EDUN[facility] LABORATORIESSpecimen (Source)Anatomical Location / LateralityCollection Method / VolumeCollection TimeReceived TimeBloodBLOOD SPECIMEN / Alxzeax0009/06/2025 8:17 AM EDT1 8:18 AM EDT Narrative Authorizing ProviderResult TypeResult StatusKyfredrick HOOVERCCHEMISTRY ORDERABLESFinal ResultPerforming OrganizationAddressCity/State/ZIP CodePhone Number [facility] [address] [place], [place] [address], [facility] [phone] [phone] * (ABNORMAL) Comprehensive Metabolic Panel (09/06/2025 8:17 AM EDT)Component ValueRef RangeTest MethodAnalysis TimePerformed AtPathologist SignatureSodium 474456 - 145 mmol/L1 8:17 AM [facility] LAB Potassium4.23.7 - 5.3 mmol/L1 8:17 AM [facility] DOTZspaoawa83917 - 107 mmol/L1 8:17 AM [facility] IVFMI60444 - 31 mmol/L1 8:17 AM [facility] LABAnion Gap8(L)9 - 16 mmol/L1 8:17 AM [facility] KNHCrrbyev268(H)74 - 99 mg/dL09/06/2025 8:17 AM [facility] DBRZNZ934 - 20 mg/dL09/06/2025 8:17 AM [facility] LABCreatinine1.10.70 - 1.20 mg/dL09/06/2025 8:17 AM [facility] LABEst, Glom Filt Rate>90>60 mL/min/1.87h03409/06/2025 8:17 AM [facility] LABComment: ? These results are not intended for use in patients <18 years of age. ? eGFR results are calculated without a race factor using the 2020 CKD-EPI equation. Careful clinical correlation is recommended, particularly when comparing to results calculated using previous equations. The CKD-EPI equation is less accurate in patients with extremes of muscle mass, extra-renal metabolism of creatine, excessive creatine ingestion, or following therapy that affects renal tubular secretion. BUN/Creatinine Uebqs909 - 8:17 AM [facility] LABCalcium9.68.6 - 10.4 mg/dL09/06/2025 8:17 AM [facility] LABTotal Protein7.56.6 - 8.7 g/dL09/06/2025 8:17 AM [facility] LABAlbumin4.43.5 - 5.2 g/dL09/06/2025 8:17 AM [facility] LABAlbumin/Globulin Ratio1.41.0 - 2.510 8:17 AM [facility] LABTotal Bilirubin0.40.00 - 1.20 mg/dL09/06/2025 8:17 AM [facility] LABAlkaline Zlqbdtscpby731(H)40 - 129 U/L1 8:17 AM [facility] URMVEY3126 - 50 U/L1 8:17 AM [facility] RLAWUX3973 - 50 U/L1 8:17 AM [facility] LABSpecimen (Source)Anatomical Location / Laterality Collection Method / VolumeCollection TimeReceived TimeBloodBLOOD SPECIMEN / Eribnor4509/06/2025 8:17 AM EDT1 8:18 AM EDT Narrative Authorizing ProviderResult TypeResult StatusChintan HOOVEROHIOHEALTH MANSFIELD HOSPITALEMISTRY ORDERABLESFinal ResultPerforming OrganizationAddressCity/State/ZIP CodePhone Number [facility] [address] [place] [address], [facility] [phone] from Last 3 Months Insurance * Guarantor: Enedina TOVAR TypeRelation to PatientDate of BirthPhoneBilling AddressPersonal/FamilyMother [address] [place] [address] * Guarantor: [employer] AGRI SYSTEMSAccount TypeRelation to PatientDate of PhoneBilling AddressCorporateEmployer [address] [place] [address] Care Teams Team MemberRelationshipSpecialtyStart DateEnd Date Martha Patrick MD [address] [place] [phone] PCP - GeneralFamily Medicine01/19/24
== END 2025-11-22 09:04 | disposition home or self-care (01) ==
LOC: ER 07:57
PROVIDERS: Emergency Provider Emergency Medicine; PCP Family Medicine
DX: L25.9 Unspecified contact dermatitis, unspecified cause (principal)
CPT/HCPCS: 99283